=== PATIENT | male | born 1965 | race Caucasian/White ===

== ENCOUNTER 2018-04-04 13:30 | Observation (INO) | payer MEDICARE ==
[2018-04-04 14:11] LABS: BASO % 0.3 % (0.0-1.0); EOS # 0.1 10^3/uL (0.0-0.50); EOS % 0.5 % (0.0-3.0); HEMATOCRIT 42.3 % (42.0-52.0); HEMOGLOBIN 14.1 g/dl (13.5-17.5); IMMATURE GRANULOCYTE % 1.2 % (0-3.0); LYMPH # 1.5 10^3/uL (1.5-4.5); LYMPH % 13.8 % (24.0-44.0); MEAN CORPUSCULAR HEMOGLOBIN 29.8 pg (27.0-33.0); MEAN CORPUSCULAR HGB CONC 33.3 g/dl (32.0-36.5); MEAN CORPUSCULAR VOLUME 89.4 fl (80.0-96.0); MONO # 0.7 10^3/uL (0.0-0.8); MONO % 6.1 % (0.0-5.0); NEUTROPHILS # 8.4 10^3/uL (1.8-7.7); NEUTROPHILS % 78.1 % (36.0-66.0); PLATELET COUNT, AUTOMATED 353 10^3/uL (150-450); RED BLOOD COUNT 4.73 10^6/uL (4.30-6.10); RED CELL DISTRIBUTION WIDTH 14.6 % (11.5-14.5); WHITE BLOOD COUNT 10.7 10^3/uL (4.0-10.0)
[2018-04-04] MEDS: NS 1,000 ML IV ×2 (14:19→19:19)
[2018-04-04] MEDS: MORPHINE 4 MG/ML 1ML VIAL/SYRINGE (J2270) IV ×3 (14:19→20:14)
[2018-04-04] MEDS: ONDANSETRON 4MG/2ML VIAL (J2405) IV ×3 (14:19→22:30)
[2018-04-04 14:44] LABS: LACTIC ACID SEPSIS PROTOCOL 1.8 MMOL/L (0.4-2.0)
[2018-04-04 14:49] LABS: ALBUMIN 3.6 GM/DL (3.2-5.2); ALKALINE PHOSPHATASE 87 U/L (45-117); ALT/SGPT 32 U/L (12-78); ANION GAP 10 MEQ/L (8-16); AST/SGOT 25 U/L (7-37); BILIRUBIN,DIRECT < 0.1 MG/DL (0.0-0.2); BILIRUBIN,TOTAL 0.4 MG/DL (0.2-1.0); BLOOD UREA NITROGEN 18 MG/DL (7-18); CARBON DIOXIDE LEVEL 24 MEQ/L (21-32); CHLORIDE LEVEL 105 MEQ/L (98-107); CREATININE FOR GFR 0.88 MG/DL (0.70-1.30); GLOMERULAR FILTRATION RATE > 60.0 (>56); GLUCOSE, FASTING 146 MG/DL (70-100); LIPASE 56 U/L (73-393); SODIUM LEVEL 139 MEQ/L (136-145); TOTAL PROTEIN 8.1 GM/DL (6.4-8.2)
[2018-04-04] MEDS: METOCLOPRAMIDE INJ 10MG/2ML VIAL (J2765) IV ×2 (15:01→20:14)
[2018-04-04] MEDS: TRIMETHOBENZAMIDE HCL INJ 200 MG/2 ML VIAL (J3250) IM (16:23)
[2018-04-04] MEDS: KETOROLAC 30 MG/ML VIAL (J1885) IV (16:30)
[2018-04-04] MEDS ORDERED: NS 1,000 ML IV (18:02)
[2018-04-04] MEDS ORDERED: ACETAMINOPHEN TAB 650MG DOSE (2X325MG) PO (18:15)
[2018-04-04] MEDS ORDERED: LACTULOSE 20 GM/30 ML SYRUP UD PO (18:15)
[2018-04-04] MEDS ORDERED: ONDANSETRON 4 MG TAB (S0181) PO (18:15)
[2018-04-04 19:11] LABS: ALBUMIN 3.5 GM/DL (3.2-5.2); ALBUMIN/GLOBULIN RATIO 0.81 (1.00-1.93); ALKALINE PHOSPHATASE 86 U/L (45-117); ALT/SGPT 34 U/L (12-78); AST/SGOT 29 U/L (7-37); BILIRUBIN,DIRECT < 0.1 MG/DL (0.0-0.2); BILIRUBIN,TOTAL 0.3 MG/DL (0.2-1.0); TOTAL PROTEIN 7.8 GM/DL (6.4-8.2)
[2018-04-05] MEDS: ONDANSETRON 4MG/2ML VIAL (J2405) IV (04:03)
[2018-04-05] MEDS: MORPHINE 4 MG/ML 1ML VIAL/SYRINGE (J2270) IV ×4 (04:04→23:22)
[2018-04-05] MEDS: LEVOTHYROXINE 150MCG TABLET (0.15MG) PO (06:05)
[2018-04-05] MEDS: LEVOTHYROXINE 25MCG TABLET (0.025MG) PO (06:05)
[2018-04-05 06:18] LABS: HEMATOCRIT 38.2 % (42.0-52.0); HEMOGLOBIN 12.8 g/dl (13.5-17.5); MEAN CORPUSCULAR HEMOGLOBIN 29.8 pg (27.0-33.0); MEAN CORPUSCULAR HGB CONC 33.5 g/dl (32.0-36.5); MEAN CORPUSCULAR VOLUME 88.8 fl (80.0-96.0); PLATELET COUNT, AUTOMATED 332 10^3/uL (150-450); RED CELL DISTRIBUTION WIDTH 14.6 % (11.5-14.5); WHITE BLOOD COUNT 13.4 10^3/uL (4.0-10.0)
[2018-04-05] MEDS: NS 1,000 ML IV ×2 (06:35→10:02)
[2018-04-05 06:39] LABS: BLOOD UREA NITROGEN 17 MG/DL (7-18); CREATININE FOR GFR 0.82 MG/DL (0.70-1.30); GLUCOSE, FASTING 97 MG/DL (70-100)
[2018-04-05 06:40] LABS: ANION GAP 8 MEQ/L (8-16); CALCIUM LEVEL 8.3 MG/DL (8.5-10.1); CARBON DIOXIDE LEVEL 26 MEQ/L (21-32); CHLORIDE LEVEL 106 MEQ/L (98-107); CHOLESTEROL LEVEL 162 MG/DL (<200); CHOLESTEROL RISK RATIO 4.764 (<5); GLOMERULAR FILTRATION RATE > 60.0 (>56); HDL CHOLESTEROL 34 MG/DL (>40); LDL CHOLESTEROL 105 MG/DL (<100); NON-HDL-C 128 MG/DL; POTASSIUM SERUM 3.5 MEQ/L (3.5-5.1); SODIUM LEVEL 140 MEQ/L (136-145); TRIGLYCERIDES LEVEL 117 MG/DL (<150)
[2018-04-05] MEDS ORDERED: ENOXAPARIN 30 MG/0.3 ML SYR (J1650) SC (09:00)
[2018-04-05] MEDS ORDERED: PANTOPRAZOLE 40MG INJ (PROTONIX) (C9113) IV (09:00)
[2018-04-05] MEDS: SUCRALFATE SUSP 1GM/10ML UD PO ×4 (09:19→23:21)
[2018-04-05] MEDS: PANTOPRAZOLE 40MG INJ (PROTONIX) (C9113) IV ×2 (09:20→21:45)
[2018-04-05] MEDS: METOCLOPRAMIDE INJ 10MG/2ML VIAL (J2765) IV ×2 (10:27→17:03)
[2018-04-06] MEDS: IBUPROFEN 800 MG TAB PO (01:01)
[2018-04-06 06:15] LABS: ANION GAP 7 MEQ/L (8-16); BLOOD UREA NITROGEN 17 MG/DL (7-18); CALCIUM LEVEL 8.5 MG/DL (8.5-10.1); CARBON DIOXIDE LEVEL 27 MEQ/L (21-32); CHLORIDE LEVEL 104 MEQ/L (98-107); CREATININE FOR GFR 0.92 MG/DL (0.70-1.30); GLOMERULAR FILTRATION RATE > 60.0 (>56); GLUCOSE, FASTING 105 MG/DL (70-100); POTASSIUM SERUM 3.8 MEQ/L (3.5-5.1); SODIUM LEVEL 138 MEQ/L (136-145)
[2018-04-06] MEDS: LEVOTHYROXINE 150MCG TABLET (0.15MG) PO (06:16)
[2018-04-06] MEDS: LEVOTHYROXINE 25MCG TABLET (0.025MG) PO (06:16)
[2018-04-06] MEDS: SUCRALFATE SUSP 1GM/10ML UD PO (06:16)
[2018-04-06] MEDS: MORPHINE 4 MG/ML 1ML VIAL/SYRINGE (J2270) IV (06:17)
[2018-04-06 06:24] LABS: MEAN CORPUSCULAR HGB CONC 33.3 g/dl (32.0-36.5); MEAN CORPUSCULAR VOLUME 89.9 fl (80.0-96.0); PLATELET COUNT, AUTOMATED 302 10^3/uL (150-450); RED BLOOD COUNT 4.34 10^6/uL (4.30-6.10); RED CELL DISTRIBUTION WIDTH 14.4 % (11.5-14.5); WHITE BLOOD COUNT 8.5 10^3/uL (4.0-10.0)
[2018-04-06] MEDS: PANTOPRAZOLE 40MG INJ (PROTONIX) (C9113) IV (08:48)
== END 2018-04-06 10:02 | disposition home or self-care (01) ==
LOC: M ED 13:30 → M ED INP 17:24 → M MSPAV 20:28
DX: K29.00 Acute gastritis without bleeding (principal); K21.9 Gastro-esophageal reflux disease without esophagitis; E03.9 Hypothyroidism, unspecified; E66.9 Obesity, unspecified; R73.03 Prediabetes; Z79.899 Other long term (current) drug therapy
CPT/HCPCS: C9113

== ENCOUNTER 2021-08-07 14:40 | Emergency (ER) | payer MEDICARE ==
[~2021-08-07] VITALS: Ht 203.2 cm; Wt 136.4 kg
[~2021-08-07 14:40] MED LIST: IBUP80TA PO; LACT20EL PO; LEVO175T2 PO; PANT40TA29 PO; SUCR1TA PO
[2021-08-07] MEDS ORDERED: ONDANSETRON 4MG/2ML VIAL IV ONE (19:15)
[2021-08-07 19:27] LABS: BASO % 0.2 % (0.0-1.0); HEMATOCRIT 46.3 % (42.0-52.0); HEMOGLOBIN 15.4 g/dl (13.5-17.5); LYMPH # 0.8 10^3/uL (1.5-5.0); MEAN CORPUSCULAR HEMOGLOBIN 28.9 pg (27.0-33.0); MEAN CORPUSCULAR HGB CONC 33.3 g/dl (32.0-36.5); MEAN CORPUSCULAR VOLUME 86.9 fl (80.0-96.0); MONO # 0.3 10^3/uL (0.0-0.8); NEUTROPHILS # 11.6 10^3/uL (1.5-8.5); PLATELET COUNT, AUTOMATED 372 10^3/uL (150-450); RED BLOOD COUNT 5.33 10^6/uL (4.30-6.10); WHITE BLOOD COUNT 12.7 10^3/uL (4.0-10.0)
[2021-08-07 19:57] LABS: ALBUMIN 4.1 GM/DL (3.2-5.2); ALT/SGPT 25 U/L (12-78); BILIRUBIN,DIRECT < 0.1 MG/DL (0.0-0.2); BILIRUBIN,TOTAL 0.4 MG/DL (0.2-1.0); BLOOD UREA NITROGEN 26 MG/DL (7-18); CALCIUM LEVEL 10.6 MG/DL (8.5-10.1); CARBON DIOXIDE LEVEL 24 MEQ/L (21-32); CHLORIDE LEVEL 106 MEQ/L (98-107); CREATININE FOR GFR 0.86 MG/DL (0.70-1.30); GLOMERULAR FILTRATION RATE > 60.0 (>56); GLUCOSE, FASTING 143 MG/DL (70-100); LIPASE 45 U/L (73-393); POTASSIUM SERUM 4.6 MEQ/L (3.5-5.1); SODIUM LEVEL 138 MEQ/L (136-145); TOTAL PROTEIN 8.3 GM/DL (6.4-8.2)
[2021-08-07] MEDS ORDERED: NS 1,000 ML IV ONE (20:15)
[2021-08-07] MEDS ORDERED: MORPHINE 4 MG/ML 1ML VIAL/SYRINGE IV ONE ×2 (20:15→22:10)
[2021-08-07] MEDS ORDERED: PROMETHAZINE 25MG/ML 1ML VIAL IV ONE (20:15)
[2021-08-07] MEDS ORDERED: ISOVUE-370 76% 100ML VIAL As Ordered ONE (20:19)
[2021-08-07] MEDS ORDERED: PROM50TA4 PO (23:04)
[2021-08-07] MEDS ORDERED: PROMETHAZINE 25 MG TAB PO ONE (23:05)
[2021-08-07 23:16] VITALS: BP 125/79
== END 2021-08-07 23:29 | disposition home or self-care (01) ==
LOC: M ED 14:40
DX: R10.84 Generalized abdominal pain (principal); R11.2 Nausea with vomiting, unspecified; R19.7 Diarrhea, unspecified; E03.9 Hypothyroidism, unspecified; R93.421 Abnormal radiologic findings on diagnostic imaging of right kidney; K21.9 Gastro-esophageal reflux disease without esophagitis; K57.32 Diverticulitis of large intestine without perforation or abscess without bleeding; G47.33 Obstructive sleep apnea (adult) (pediatric); Z86.711 Personal history of pulmonary embolism; Z79.899 Other long term (current) drug therapy; Z88.5 Allergy status to narcotic agent; Z88.8 Allergy status to other drugs, medicaments and biological substances
CPT/HCPCS: 74177; 80048; 80076; 83690; 85025; 96361; 96374; 96375; 96376; 99284; J2270; J2405; J2550; Q9967

== ENCOUNTER 2021-08-10 14:58 | Emergency (ER) | payer MEDICARE ==
[~2021-08-10] VITALS: Ht 203.2 cm; Wt 136.4 kg
[~2021-08-10 14:58] MED LIST changes: +PROM50TA4 PO
[2021-08-10 15:58] LABS: BASO % 0.3 % (0.0-1.0); HEMATOCRIT 47.4 % (42.0-52.0); HEMOGLOBIN 16.2 g/dl (13.5-17.5); LYMPH # 1.5 10^3/uL (1.5-5.0); LYMPH % 14.5 % (24.0-44.0); MEAN CORPUSCULAR HEMOGLOBIN 29.7 pg (27.0-33.0); MEAN CORPUSCULAR HGB CONC 34.2 g/dl (32.0-36.5); MONO # 0.7 10^3/uL (0.0-0.8); MONO % 7.1 % (2.0-8.0); NEUTROPHILS # 7.8 10^3/uL (1.5-8.5); NEUTROPHILS % 77.4 % (36.0-66.0); PLATELET COUNT, AUTOMATED 360 10^3/uL (150-450); RED BLOOD COUNT 5.45 10^6/uL (4.30-6.10); WHITE BLOOD COUNT 10.1 10^3/uL (4.0-10.0)
[2021-08-10 16:34] LABS: ALBUMIN 4.2 GM/DL (3.2-5.2); BILIRUBIN,DIRECT 0.2 MG/DL (0.0-0.2); BILIRUBIN,TOTAL 0.6 MG/DL (0.2-1.0); TOTAL PROTEIN 7.9 GM/DL (6.4-8.2)
[2021-08-10] MEDS ORDERED: METOCLOPRAMIDE INJ 10MG/2ML VIAL (J2765 PER 1) IV ONE (16:50)
[2021-08-10] MEDS ORDERED: NS 1,000 ML IV ONE (16:50)
[2021-08-10] MEDS ORDERED: DICYCLOMINE INJ 20MG/2ML (J0500) IM ONE (16:55)
[2021-08-10 17:59] LABS: AMPHETAMINES LEVEL URINE NEGATIVE (NEGATIVE); BARBITURATES URINE NEGATIVE (NEGATIVE); BENZODIAZEPINES URINE POSITIVE (NEGATIVE); CANNABINOIDS URINE POSITIVE (NEGATIVE); COCAINE METABOLITE URINE NEGATIVE (NEGATIVE); METHADONE URINE NEGATIVE (NEGATIVE); OPIATES URINE POSITIVE (NEGATIVE); PHENCYCLIDINE URINE NEGATIVE (NEGATIVE)
[2021-08-10] MEDS ORDERED: HALOPERIDOL 5MG/ML VIAL (J1630 PER 1) IV ONE (19:15)
[2021-08-10 19:20] VITALS: BP 119/71
[2021-08-10] MEDS ORDERED: ONDA4TAB6 PO (20:03)
== END 2021-08-10 20:47 | disposition home or self-care (01) ==
LOC: M ED 14:58 → EDBD 14:58 → EDSEX 14:58 → M ED 20:47
DX: R11.2 Nausea with vomiting, unspecified (principal); R19.7 Diarrhea, unspecified; K21.9 Gastro-esophageal reflux disease without esophagitis; Z87.19 Personal history of other diseases of the digestive system; Z79.899 Other long term (current) drug therapy; Z88.8 Allergy status to other drugs, medicaments and biological substances; Z88.5 Allergy status to narcotic agent
CPT/HCPCS: 80047; 80076; 80307; 83690; 85025; 96361; 96372; 96374; 96375; 99284; J0500; J1630; J2765

== ENCOUNTER 2022-11-12 13:47 | Inpatient (IN) | payer MEDICARE ==
[~2022-11-12] VITALS: Ht 203.2 cm; Wt 123.0 kg
[~2022-11-12 13:47] MED LIST changes: +ONDA4TAB6 PO
[2022-11-12] MEDS ORDERED: MONT10TA97 PO (14:11)
[2022-11-12] MEDS ORDERED: DIAZ5TAB PO (14:11)
[2022-11-12] MEDS ORDERED: LEVO-96 PO (14:11)
[2022-11-12] MEDS ORDERED: ALLE10TA62 PO (14:12)
[2022-11-12] MEDS ORDERED: PANTOPRAZOLE 40MG VIAL IV ONE (15:00)
[2022-11-12 15:24] LABS: BASO % 0.2 % (0.0-1.0); HEMATOCRIT 46.9 % (42.0-52.0); LYMPH % 6.4 % (24.0-44.0); MEAN CORPUSCULAR HEMOGLOBIN 29.7 pg (27.0-33.0); MEAN CORPUSCULAR HGB CONC 34.1 g/dl (32.0-36.5); MONO # 0.5 10^3/uL (0.0-0.8); MONO % 2.8 % (2.0-8.0); NEUTROPHILS # 14.5 10^3/uL (1.5-8.5); NEUTROPHILS % 89.7 % (36.0-66.0); PLATELET COUNT, AUTOMATED 383 10^3/uL (150-450); RED BLOOD COUNT 5.39 10^6/uL (4.30-6.10); WHITE BLOOD COUNT 16.2 10^3/uL (4.0-10.0)
[2022-11-12 15:35] LABS: INR 0.98; PROTHROMBIN TIME 13.2 SECONDS (12.5-14.5)
[2022-11-12] MEDS ORDERED: HALOPERIDOL 5MG/ML 1ML VIAL IV ONE (15:35)
[2022-11-12] MEDS ORDERED: NS 1,000 ML IV ONE ×2 (16:15→17:15)
[2022-11-12 16:34] LABS: RSV AMPLIFICATION NEGATIVE (NEGATIVE)
[2022-11-12] MEDS: MORPHINE 4 MG/ML 1ML VIAL IV PRN ×2 (17:05→22:35)
[2022-11-12 17:12] LABS: LIPASE 20 U/L (12-53)
[2022-11-12 17:14] LABS: ALBUMIN 4.3 G/DL (3.2-5.2); ALKALINE PHOSPHATASE 100 U/L (46-116); ALT/SGPT 17 U/L (7.0-40); AST/SGOT 16 U/L (<34); BILIRUBIN,DIRECT 0.1 MG/DL (<0.4); BILIRUBIN,TOTAL 0.5 MG/DL (0.3-1.2); BLOOD UREA NITROGEN 26 MG/DL (9-23); CALCIUM LEVEL 10.9 MG/DL (8.5-10.1); CARBON DIOXIDE LEVEL 22 MMOL/L (20-31); CHLORIDE LEVEL 104 MMOL/L (98-107); CREATININE FOR GFR 0.82 MG/DL (0.70-1.30); GLOMERULAR FILTRATION RATE > 60.0 (>56); GLUCOSE, FASTING 164 MG/DL (60-100); POTASSIUM SERUM 4.7 MMOL/L (3.5-5.1); SODIUM LEVEL 140 MMOL/L (136-145); TOTAL PROTEIN 8.3 G/DL (5.7-8.2)
[2022-11-12] MEDS ORDERED: ISOVUE-370 76% 100ML VIAL As Ordered ONE (17:21)
[2022-11-12] MEDS ORDERED: METOCLOPRAMIDE INJ 10MG/2ML VIAL IV PRN (21:20)
[2022-11-12] MEDS ORDERED: HYDROMORPHONE HCL 0.5 MG/ 0.5 ML SYRINGE IV PRN (21:20)
[2022-11-12] MEDS ORDERED: FLON1SPR (22:40)
[2022-11-12] MEDS ORDERED: REPA140I2 SC (22:40)
[2022-11-12] MEDS ORDERED: HOME MED LIST COMPLETE! XX SCH (22:40)
[2022-11-12] MEDS ORDERED: OMEG10002 PO (22:40)
[2022-11-12] MEDS ORDERED: CETI-24 PO (22:40)
[2022-11-12] MEDS ORDERED: SEMA7TAB2 PO (22:40)
[2022-11-12] MEDS ORDERED: ESOM1CAP5 PO (22:40)
[2022-11-12] MEDS ORDERED: ACET300T53 PO (22:40)
[2022-11-12] MEDS ORDERED: GNP1000C11 PO (22:40)
[2022-11-12] MEDS ORDERED: C 50TAB PO (22:40)
[2022-11-12] MEDS ORDERED: CYCL-707 PO (22:40)
[2022-11-12] MEDS ORDERED: VITA100093 PO (22:40)
[2022-11-12] MEDS ORDERED: DULO60CA35 PO (22:40)
[2022-11-12 22:52] VITALS: BP 140/80; TEMP 98.7; O2SAT 97
[2022-11-13] MEDS: LR 1,000 ML IV SCH ×4 (00:08→19:00)
[2022-11-13 00:43] LABS: BASO % 0.1 % (0.0-1.0); HEMATOCRIT 42.3 % (42.0-52.0); HEMOGLOBIN 14.1 g/dl (13.5-17.5); LYMPH # 1.2 10^3/uL (1.5-5.0); LYMPH % 9.1 % (24.0-44.0); MEAN CORPUSCULAR HEMOGLOBIN 29.3 pg (27.0-33.0); MEAN CORPUSCULAR HGB CONC 33.3 g/dl (32.0-36.5); MEAN CORPUSCULAR VOLUME 87.8 fl (80.0-96.0); MONO # 0.6 10^3/uL (0.0-0.8); MONO % 4.6 % (2.0-8.0); NEUTROPHILS # 11.4 10^3/uL (1.5-8.5); NEUTROPHILS % 84.9 % (36.0-66.0); PLATELET COUNT, AUTOMATED 338 10^3/uL (150-450); RED BLOOD COUNT 4.82 10^6/uL (4.30-6.10); WHITE BLOOD COUNT 13.4 10^3/uL (4.0-10.0)
[2022-11-13 03:26] VITALS: BP 130/69; TEMP 98.7; O2SAT 95
[2022-11-13] MEDS: ONDANSETRON 4MG 2ML VIAL IV PRN ×2 (03:54→19:55)
[2022-11-13] MEDS: HYDROMORPHONE HCL 0.5 MG/ 0.5 ML SYRINGE IV PRN ×4 (03:55→21:25)
[2022-11-13 06:06] LABS: HEMATOCRIT 38.9 % (42.0-52.0); HEMOGLOBIN 13.2 g/dl (13.5-17.5)
[2022-11-13 07:37] VITALS: BP 132/68; TEMP 98.1; O2SAT 98
[2022-11-13] MEDS: PANTOPRAZOLE 40MG VIAL IV SCH ×2 (09:13→19:55)
[2022-11-13] MEDS ORDERED: CYCLOBENZAPRINE 10MG TABLET PO PRN (10:10)
[2022-11-13] MEDS ORDERED: FLUTICASONE PROP 0.05% NASAL SPRAY 16 GM (FLONASE) PRN (10:10)
[2022-11-13] MEDS ORDERED: diazePAM 5MG TABLET PO PRN (10:10)
[2022-11-13 11:04] LABS: PTH INTACT 41.4 PG/ML (18.5-88.0)
[2022-11-13 11:06] LABS: TOTAL 25(OH) VITAMIN D 81.7 NG/ML (20.0-100.0)
[2022-11-13] MEDS: DULoxetine 30MG CAPSULE (CYMBALTA) PO SCH (11:25)
[2022-11-13] MEDS: LEVOTHYROXINE 50MCG TABLET (0.05MG) PO SCH (11:25)
[2022-11-13] MEDS: LEVOTHYROXINE 125MCG TABLET (0.125MG) PO SCH (11:25)
[2022-11-13] MEDS: CETIRIZINE (ZyrTEC) 10 MG TAB PO SCH (11:26)
[2022-11-13] MEDS: ASCORBIC ACID 500 MG TAB PO SCH (11:26)
[2022-11-13] MEDS: MONTELUKAST 10 MG TAB PO SCH (11:26)
[2022-11-13 11:33] VITALS: BP 111/71; TEMP 97.9; O2SAT 97
[2022-11-13 12:14] LABS: HEMOGLOBIN 13.5 g/dl (13.5-17.5)
[2022-11-13 14:12] LABS: HEMATOCRIT 40.4 % (42.0-52.0); HEMOGLOBIN 13.5 g/dl (13.5-17.5)
[2022-11-13 15:54] VITALS: BP 126/60; TEMP 98.1; O2SAT 97
[2022-11-13] MEDS ORDERED: POLYETHYLENE GLYCOL (MIRALAX) 238GM BOTTLE PO ONE (17:00)
[2022-11-13] MEDS ORDERED: MOM 30ML SUSPENSION UDC PO ONE (17:00)
[2022-11-13 20:45] VITALS: BP 104/58; TEMP 98.6; O2SAT 94
[2022-11-13 21:45] LABS: HEMATOCRIT 37.1 % (42.0-52.0); HEMOGLOBIN 12.2 g/dl (13.5-17.5)
[2022-11-14] MEDS: HYDROMORPHONE HCL 0.5 MG/ 0.5 ML SYRINGE IV PRN ×5 (01:36→20:50)
[2022-11-14] MEDS: LR 1,000 ML IV SCH ×2 (03:24→11:07)
[2022-11-14 05:18] VITALS: BP 126/86; TEMP 98.4; O2SAT 93
[2022-11-14] MEDS: LEVOTHYROXINE 50MCG TABLET (0.05MG) PO SCH (05:36)
[2022-11-14] MEDS: ONDANSETRON 4MG 2ML VIAL IV PRN (05:36)
[2022-11-14] MEDS: LEVOTHYROXINE 125MCG TABLET (0.125MG) PO SCH (05:36)
[2022-11-14] MEDS ORDERED: POLYETHYLENE GLYCOL (MIRALAX) 238GM BOTTLE PO ONE (06:00)
[2022-11-14] MEDS: PANTOPRAZOLE 40MG VIAL IV SCH ×2 (07:59→20:49)
[2022-11-14] MEDS: MONTELUKAST 10 MG TAB PO SCH (08:00)
[2022-11-14] MEDS: ASCORBIC ACID 500 MG TAB PO SCH (08:00)
[2022-11-14] MEDS: CETIRIZINE (ZyrTEC) 10 MG TAB PO SCH (08:00)
[2022-11-14] MEDS: OMEGA-3 1000MG CAPSULE PO SCH (08:00)
[2022-11-14] MEDS: DULoxetine 30MG CAPSULE (CYMBALTA) PO SCH (08:00)
[2022-11-14 14:00] VITALS: BP 104/66; TEMP 98.1; O2SAT 96
[2022-11-14] MEDS ORDERED: fentaNYL 100 MCG/2 ML INJECTION As Ordered ONE (19:13)
[2022-11-14] MEDS ORDERED: propofoL 200 MG/20 ML VIAL As Ordered ONE ×3 (19:13→19:30)
[2022-11-14] MEDS ORDERED: LIDOCAINE 2% 100MG/5ML SDV (FOR ANES.) As Ordered ONE (19:13)
[2022-11-14] MEDS ORDERED: oxyCODONE 5MG TAB PO PRN (19:45)
[2022-11-14] MEDS ORDERED: fentaNYL 100 MCG/2 ML INJECTION IV PRN (19:45)
[2022-11-14] MEDS ORDERED: ONDANSETRON 4MG 2ML VIAL IV PRN (19:45)
[2022-11-14] MEDS ORDERED: LR 1,000 ML IV SCH (19:45)
[2022-11-14 20:30] VITALS: BP 127/76; TEMP 97.7; O2SAT 95
[2022-11-14 21:00] VITALS: BP 122/73; TEMP 97.9; O2SAT 94
[2022-11-14 22:00] VITALS: BP 138/79; TEMP 97.5; O2SAT 97
[2022-11-14] MEDS ORDERED: oxyCODONE 5MG TAB PO ONE (23:10)
[2022-11-15 02:00] VITALS: BP 124/83; TEMP 97.5; O2SAT 100
[2022-11-15] MEDS: HYDROMORPHONE HCL 0.5 MG/ 0.5 ML SYRINGE IV PRN ×3 (03:27→12:12)
[2022-11-15] MEDS: LEVOTHYROXINE 50MCG TABLET (0.05MG) PO SCH (05:06)
[2022-11-15] MEDS: LEVOTHYROXINE 125MCG TABLET (0.125MG) PO SCH (05:06)
[2022-11-15 06:00] VITALS: BP 122/84; TEMP 97.9; O2SAT 96
[2022-11-15] MEDS: MONTELUKAST 10 MG TAB PO SCH (08:01)
[2022-11-15] MEDS: OMEGA-3 1000MG CAPSULE PO SCH (08:01)
[2022-11-15] MEDS: PANTOPRAZOLE 40MG VIAL IV SCH (08:01)
[2022-11-15] MEDS: ASCORBIC ACID 500 MG TAB PO SCH (08:01)
[2022-11-15] MEDS: CETIRIZINE (ZyrTEC) 10 MG TAB PO SCH (08:01)
[2022-11-15] MEDS: DULoxetine 30MG CAPSULE (CYMBALTA) PO SCH (08:01)
[2022-11-15 14:00] VITALS: BP 121/80; TEMP 97.5; O2SAT 97
[2022-11-19] MEDS ORDERED: REPATHA 140 MG SQ SCH (09:00)
== END 2022-11-15 15:21 | disposition home or self-care (01) | DRG 394 ==
LOC: M ED 13:47 → M ED INP 21:17 → M PCU 22:49 → M MSPAV 11-13 16:03
PROVIDERS: ADMIT Internal Medicine; ATTEND Internal Medicine
PROC: 0DJD8ZZ Inspection of Lower Intestinal Tract, Via Natural or Artificial Opening Endoscopic (ICD-10-PCS; 2022-11-14)
PROC: 0DB58ZX Excision of Esophagus, Via Natural or Artificial Opening Endoscopic, Diagnostic (ICD-10-PCS; principal; 2022-11-14 16:30)
DX: K64.8 Other hemorrhoids (principal); K92.0 Hematemesis; E87.20 Acidosis, unspecified; D62 Acute posthemorrhagic anemia; K92.1 Melena; K21.9 Gastro-esophageal reflux disease without esophagitis; K22.70 Barrett's esophagus without dysplasia; F12.20 Cannabis dependence, uncomplicated; D72.829 Elevated white blood cell count, unspecified; E78.5 Hyperlipidemia, unspecified; D72.810 Lymphocytopenia; Z88.8 Allergy status to other drugs, medicaments and biological substances; Z79.899 Other long term (current) drug therapy; K44.9 Diaphragmatic hernia without obstruction or gangrene; K57.30 Diverticulosis of large intestine without perforation or abscess without bleeding

== ENCOUNTER 2023-01-14 13:09 | Observation (INO) | payer MEDICARE ==
[~2023-01-14] VITALS: Ht 203.2 cm; Wt 125.0 kg
[~2023-01-14 13:09] MED LIST changes: +ACET300T53 PO; +ALLE10TA62 PO; +C 50TAB PO; +CETI-24 PO; +CYCL-707 PO; +DIAZ5TAB PO; +DULO60CA35 PO; +ESOM1CAP5 PO; +FLON1SPR; +GNP1000C11 PO; +LEVO-96 PO; +MONT10TA97 PO; +OMEG10002 PO; +REPA140I2 SC; +SEMA7TAB2 PO; +VITA100093 PO
[2023-01-14 15:07] LABS: RSV AMPLIFICATION NEGATIVE (NEGATIVE)
[2023-01-14] MEDS ORDERED: ONDANSETRON 4MG 2ML VIAL IV ONE (17:55)
[2023-01-14] MEDS ORDERED: MORPHINE 4 MG/ML 1ML VIAL IV ONE (17:55)
[2023-01-14] MEDS ORDERED: NS 1,000 ML IV ONE ×2 (17:55)
[2023-01-14] MEDS ORDERED: PANTOPRAZOLE 40MG VIAL IV ONE (18:45)
[2023-01-14 19:23] LABS: BASO % 0.2 % (0.0-1.0); HEMATOCRIT 42.9 % (42.0-52.0); HEMOGLOBIN 14.7 g/dl (13.5-17.5); LYMPH # 0.8 10^3/uL (1.5-5.0); LYMPH % 7.5 % (24.0-44.0); MEAN CORPUSCULAR HGB CONC 34.3 g/dl (32.0-36.5); MEAN CORPUSCULAR VOLUME 87.6 fl (80.0-96.0); MONO # 0.2 10^3/uL (0.0-0.8); MONO % 1.9 % (2.0-8.0); NEUTROPHILS # 9.4 10^3/uL (1.5-8.5); PLATELET COUNT, AUTOMATED 349 10^3/uL (150-450); WHITE BLOOD COUNT 10.5 10^3/uL (4.0-10.0)
[2023-01-14 19:35] LABS: INR 1.07; PROTHROMBIN TIME 13.6 SECONDS (12.5-14.5)
[2023-01-14 19:36] LABS: PARTIAL THROMBOPLASTIN TIME 29.3 SECONDS (24.8-34.2)
[2023-01-14] MEDS ORDERED: MORPHINE 2 MG/ML 1ML VIAL IV ONE (19:45)
[2023-01-14] MEDS ORDERED: PROMETHAZINE 25MG/ML 1ML VIAL IV ONE (19:50)
[2023-01-14 19:53] LABS: LIPASE 24 U/L (12-53)
[2023-01-14] MEDS ORDERED: ISOVUE-370 76% 100ML VIAL As Ordered ONE (19:54)
[2023-01-14 19:55] LABS: ALBUMIN 4.1 G/DL (3.2-5.2); ALKALINE PHOSPHATASE 99 U/L (46-116); ALT/SGPT 12 U/L (7.0-40); AST/SGOT 20 U/L (<34); BILIRUBIN,DIRECT 0.1 MG/DL (<0.4); BILIRUBIN,TOTAL 0.4 MG/DL (0.3-1.2); BLOOD UREA NITROGEN 21 MG/DL (9-23); CARBON DIOXIDE LEVEL 23 MMOL/L (20-31); CHLORIDE LEVEL 108 MMOL/L (98-107); GLOMERULAR FILTRATION RATE > 60.0 (>56); GLUCOSE, FASTING 148 MG/DL (60-100); POTASSIUM SERUM 4.6 MMOL/L (3.5-5.1); SODIUM LEVEL 140 MMOL/L (136-145); TOTAL PROTEIN 7.7 G/DL (5.7-8.2)
[2023-01-14] MEDS ORDERED: ACETAMINOPHEN TAB 650MG DOSE (2X325MG) PO PRN (23:30)
[2023-01-14] MEDS ORDERED: MOM 30ML SUSPENSION UDC PO PRN (23:30)
[2023-01-14] MEDS ORDERED: PROMETHAZINE 25MG/ML 1ML VIAL IV PRN (23:30)
[2023-01-14] MEDS ORDERED: DICYCLOMINE INJ 20MG/2ML IM PRN (23:30)
[2023-01-15] MEDS: NS 1,000 ML IV SCH ×2 (00:08→08:44)
[2023-01-15 00:40] VITALS: BP 150/90; TEMP 98.5; O2SAT 99
[2023-01-15] MEDS ORDERED: ONDANSETRON 4MG 2ML VIAL IV PRN (03:30)
[2023-01-15] MEDS: ACETAMINOPH W/CODEINE #3 TAB UD PO PRN ×2 (04:07→10:13)
[2023-01-15 05:35] VITALS: BP 134/68; TEMP 99.1; O2SAT 97
[2023-01-15 07:11] LABS: HEMATOCRIT 39.9 % (42.0-52.0); HEMOGLOBIN 13.4 g/dl (13.5-17.5); MEAN CORPUSCULAR HEMOGLOBIN 29.5 pg (27.0-33.0); MEAN CORPUSCULAR HGB CONC 33.6 g/dl (32.0-36.5); MEAN CORPUSCULAR VOLUME 87.9 fl (80.0-96.0); PLATELET COUNT, AUTOMATED 279 10^3/uL (150-450); RED BLOOD COUNT 4.54 10^6/uL (4.30-6.10); WHITE BLOOD COUNT 12.7 10^3/uL (4.0-10.0)
[2023-01-15 07:34] LABS: ALBUMIN 3.7 G/DL (3.2-5.2); ALKALINE PHOSPHATASE 90 U/L (46-116); ALT/SGPT 14 U/L (7.0-40); AST/SGOT 16 U/L (<34); BILIRUBIN,TOTAL 0.5 MG/DL (0.3-1.2); BLOOD UREA NITROGEN 24 MG/DL (9-23); CALCIUM LEVEL 9.4 MG/DL (8.5-10.1); CARBON DIOXIDE LEVEL 27 MMOL/L (20-31); CHLORIDE LEVEL 106 MMOL/L (98-107); CREATININE FOR GFR 0.78 MG/DL (0.70-1.30); GLOMERULAR FILTRATION RATE > 60.0 (>56); GLUCOSE, FASTING 115 MG/DL (60-100); POTASSIUM SERUM 4.1 MMOL/L (3.5-5.1); SODIUM LEVEL 140 MMOL/L (136-145)
[2023-01-15] MEDS ORDERED: VITA500T40 PO (08:34)
[2023-01-15] MEDS ORDERED: HOME MED LIST COMPLETE! XX SCH (08:35)
[2023-01-15] MEDS ORDERED: ONDANSETRON 4MG ORAL DISINTEGRATING TAB SL SCH (09:00)
[2023-01-15] MEDS ORDERED: OMEPRAZOLE 20MG CAP PO SCH ×2 (09:00→09:55)
[2023-01-15] MEDS ORDERED: ENOXAPARIN 40MG/0.4ML SYRINGE (J1650 PER 10MG) SC SCH (09:00)
[2023-01-15] MEDS ORDERED: diazePAM 5MG TABLET PO PRN (09:45)
[2023-01-15] MEDS ORDERED: CYCLOBENZAPRINE 10MG TABLET PO PRN (09:45)
[2023-01-15] MEDS ORDERED: FLUTICASONE PROP 0.05% NASAL SPRAY 16 GM (FLONASE) PRN (09:45)
[2023-01-15] MEDS ORDERED: METOCLOPRAMIDE 5 MG TAB PO PRN (09:50)
[2023-01-15] MEDS ORDERED: CETIRIZINE (ZyrTEC) 10 MG TAB PO SCH (09:54)
[2023-01-15] MEDS ORDERED: ASCORBIC ACID 500 MG TAB PO SCH (09:54)
[2023-01-15] MEDS ORDERED: VITAMIN D 1,000 INTERNATIONAL UNITS TABLET PO SCH (09:54)
[2023-01-15] MEDS ORDERED: MONTELUKAST 10 MG TAB PO SCH (09:55)
[2023-01-15] MEDS ORDERED: CYANOCOBALAMIN 500 MCG TAB PO SCH (09:55)
[2023-01-15] MEDS ORDERED: LEVOTHYROXINE 150MCG TABLET (0.15MG) PO SCH (09:58)
[2023-01-15] MEDS ORDERED: LEVOTHYROXINE 25MCG TABLET (0.025MG) PO SCH (09:59)
[2023-01-15] MEDS ORDERED: ONDANSETRON 4MG 2ML VIAL IV SCH (10:00)
[2023-01-15 11:49] LABS: HEMOGLOBIN A1c 5.7 % (4.0-6.0)
[2023-01-15] MEDS ORDERED: OMEP40CA5 PO (12:47)
[2023-01-15] MEDS ORDERED: ONDA4TAB6 SL (12:47)
[2023-01-15] MEDS ORDERED: OMEGA-3 1000MG CAPSULE PO SCH (21:00)
[2023-01-15] MEDS ORDERED: DULoxetine 30MG CAPSULE (CYMBALTA) PO SCH (21:00)
== END 2023-01-15 13:20 | disposition home or self-care (01) ==
LOC: M ED 13:09 → INTOOBSV 23:27 → M ED INP 23:27 → M MS5PR 01-15 00:48
PROVIDERS: ADMIT Family Medicine; ATTEND Student in an Organized Health Care Education/Training Program
DX: A08.4 Viral intestinal infection, unspecified (principal); K22.70 Barrett's esophagus without dysplasia; E03.9 Hypothyroidism, unspecified; R73.03 Prediabetes; K64.9 Unspecified hemorrhoids; K57.92 Diverticulitis of intestine, part unspecified, without perforation or abscess without bleeding; Z86.711 Personal history of pulmonary embolism; F12.10 Cannabis abuse, uncomplicated; E66.9 Obesity, unspecified; Z79.899 Other long term (current) drug therapy; Z88.8 Allergy status to other drugs, medicaments and biological substances

== ENCOUNTER 2023-01-17 19:08 | Inpatient (IN) | payer MEDICARE ==
[~2023-01-17] VITALS: Ht 205.7 cm; Wt 120.2 kg
[~2023-01-17 19:08] MED LIST changes: +OMEP40CA5 PO; +ONDA4TAB6 SL; +VITA500T40 PO
[2023-01-17 22:41] LABS: BASO % 0.3 % (0.0-1.0); EOS % 0.1 % (0.0-3.0); HEMATOCRIT 43.5 % (42.0-52.0); HEMOGLOBIN 14.8 g/dl (13.5-17.5); LYMPH # 3.4 10^3/uL (1.5-5.0); LYMPH % 30.6 % (24.0-44.0); MEAN CORPUSCULAR HEMOGLOBIN 29.3 pg (27.0-33.0); MEAN CORPUSCULAR VOLUME 86.1 fl (80.0-96.0); MONO # 0.9 10^3/uL (0.0-0.8); MONO % 7.8 % (2.0-8.0); NEUTROPHILS # 6.7 10^3/uL (1.5-8.5); NEUTROPHILS % 60.9 % (36.0-66.0); PLATELET COUNT, AUTOMATED 298 10^3/uL (150-450); RED BLOOD COUNT 5.05 10^6/uL (4.30-6.10)
[2023-01-17 23:17] LABS: LIPASE 25 U/L (12-53)
[2023-01-17 23:21] LABS: ALBUMIN 4.4 G/DL (3.2-5.2); ALKALINE PHOSPHATASE 105 U/L (46-116); ALT/SGPT 24 U/L (7.0-40); AST/SGOT 25 U/L (<34); BILIRUBIN,DIRECT 0.4 MG/DL (<0.4); BILIRUBIN,TOTAL 0.9 MG/DL (0.3-1.2); BLOOD UREA NITROGEN 31 MG/DL (9-23); CALCIUM LEVEL 10.2 MG/DL (8.5-10.1); CARBON DIOXIDE LEVEL 24 MMOL/L (20-31); CHLORIDE LEVEL 103 MMOL/L (98-107); CREATININE FOR GFR 0.94 MG/DL (0.70-1.30); GLOMERULAR FILTRATION RATE > 60.0 (>56); GLUCOSE, FASTING 94 MG/DL (60-100); POTASSIUM SERUM 4.1 MMOL/L (3.5-5.1); SODIUM LEVEL 136 MMOL/L (136-145); TOTAL PROTEIN 8.1 G/DL (5.7-8.2)
[2023-01-17] MEDS ORDERED: ONDANSETRON 4MG 2ML VIAL IV ONE (23:50)
[2023-01-18] MEDS: MORPHINE 4 MG/ML 1ML VIAL IV PRN ×4 (00:20→08:22)
[2023-01-18] MEDS ORDERED: ISOVUE-370 76% 100ML VIAL As Ordered ONE (00:26)
[2023-01-18 01:12] LABS: CK-MB VALUE MASS < 1.0 NG/ML (<3.6)
[2023-01-18 01:15] LABS: CPK CREATINE PHOSPHOKINASE 88 U/L (46-171); MB/CK RELATIVE INDEX 1.13 (< OR =4)
[2023-01-18] MEDS ORDERED: PROMETHAZINE 25MG/ML 1ML VIAL IV ONE ×2 (01:20→03:35)
[2023-01-18] MEDS: LR 1,000 ML IV SCH ×3 (04:50→17:11)
[2023-01-18 05:36] LABS: RSV AMPLIFICATION NEGATIVE (NEGATIVE)
[2023-01-18] MEDS ORDERED: MED REC IN PROGRESS XX SCH (07:55)
[2023-01-18] MEDS: PROMETHAZINE 25MG/ML 1ML VIAL IV PRN ×3 (08:22→22:51)
[2023-01-18] MEDS: ENOXAPARIN 40MG/0.4ML SYRINGE (J1650 PER 10MG) SC SCH (08:22)
[2023-01-18] MEDS ORDERED: HOME MED LIST COMPLETE! XX SCH (08:40)
[2023-01-18] MEDS ORDERED: MORPHINE 2 MG/ML 1ML VIAL IV ONE (10:10)
[2023-01-18 15:15] VITALS: BP 122/77; TEMP 97.3; O2SAT 95
[2023-01-18] MEDS: MORPHINE 2 MG/ML 1ML VIAL IV PRN ×2 (15:30→20:43)
[2023-01-18 20:35] VITALS: BP 122/77; TEMP 97.9; O2SAT 95
[2023-01-19] MEDS: NS 1,000 ML IV SCH ×4 (00:14→22:43)
[2023-01-19] MEDS: MORPHINE 2 MG/ML 1ML VIAL IV PRN ×6 (00:15→22:44)
[2023-01-19] MEDS: ONDANSETRON 4MG 2ML VIAL IV PRN ×2 (03:53→08:56)
[2023-01-19] MEDS: PANTOPRAZOLE 40MG VIAL IV SCH ×3 (03:53→22:44)
[2023-01-19 05:26] VITALS: BP 150/95; TEMP 97.7; O2SAT 97
[2023-01-19 06:25] LABS: HEMATOCRIT 42.3 % (42.0-52.0); HEMOGLOBIN 14.2 g/dl (13.5-17.5); MEAN CORPUSCULAR HEMOGLOBIN 29.2 pg (27.0-33.0); MEAN CORPUSCULAR HGB CONC 33.6 g/dl (32.0-36.5); PLATELET COUNT, AUTOMATED 275 10^3/uL (150-450); RED BLOOD COUNT 4.86 10^6/uL (4.30-6.10); WHITE BLOOD COUNT 12.8 10^3/uL (4.0-10.0)
[2023-01-19 06:57] LABS: BLOOD UREA NITROGEN 29 MG/DL (9-23); CARBON DIOXIDE LEVEL 25 MMOL/L (20-31); CHLORIDE LEVEL 102 MMOL/L (98-107); CREATININE FOR GFR 0.86 MG/DL (0.70-1.30); GLOMERULAR FILTRATION RATE > 60.0 (>56); GLUCOSE, FASTING 88 MG/DL (60-100); POTASSIUM SERUM 3.7 MMOL/L (3.5-5.1); SODIUM LEVEL 138 MMOL/L (136-145)
[2023-01-19] MEDS: MIRALAX *UNIT DOSE* 17GM PACKET NG SCH ×3 (09:00→20:22)
[2023-01-19] MEDS: LEVOTHYROXINE 100MCG (0.1MG) 5ML SDV PF (SOLUTION FORM) IV SCH (09:03)
[2023-01-19] MEDS: PIPERACILLIN/TAZOBACTAM SOD 3.375 GM in D5W MINI-BAG PLUS 50 ML IV SCH ×4 (09:03→22:43)
[2023-01-19] MEDS: ENOXAPARIN 40MG/0.4ML SYRINGE (J1650 PER 10MG) SC SCH (09:04)
[2023-01-19 14:00] VITALS: BP 146/84; TEMP 97.7; O2SAT 96
[2023-01-19 17:21] LABS: HEMATOCRIT 43.1 % (42.0-52.0); HEMOGLOBIN 14.7 g/dl (13.5-17.5); MEAN CORPUSCULAR HEMOGLOBIN 29.7 pg (27.0-33.0); MEAN CORPUSCULAR HGB CONC 34.1 g/dl (32.0-36.5); MEAN CORPUSCULAR VOLUME 87.1 fl (80.0-96.0); PLATELET COUNT, AUTOMATED 254 10^3/uL (150-450); RED BLOOD COUNT 4.95 10^6/uL (4.30-6.10); WHITE BLOOD COUNT 10.3 10^3/uL (4.0-10.0)
[2023-01-19 19:46] VITALS: BP 121/78; TEMP 97.9; O2SAT 95
[2023-01-19 20:00] VITALS: TEMP 98
[2023-01-20] MEDS: PIPERACILLIN/TAZOBACTAM SOD 3.375 GM in D5W MINI-BAG PLUS 50 ML IV SCH ×4 (03:07→20:16)
[2023-01-20 05:31] VITALS: BP 102/57; TEMP 97.4; O2SAT 96
[2023-01-20] MEDS: NS 1,000 ML IV SCH ×3 (05:59→18:09)
[2023-01-20] MEDS: MORPHINE 2 MG/ML 1ML VIAL IV PRN ×4 (06:00→22:20)
[2023-01-20 06:06] LABS: BASO % 0.3 % (0.0-1.0); EOS # 0.1 10^3/uL (0.0-0.5); EOS % 0.8 % (0.0-3.0); HEMATOCRIT 39.9 % (42.0-52.0); HEMOGLOBIN 13.5 g/dl (13.5-17.5); LYMPH # 0.7 10^3/uL (1.5-5.0); LYMPH % 11.6 % (24.0-44.0); MEAN CORPUSCULAR HEMOGLOBIN 29.6 pg (27.0-33.0); MEAN CORPUSCULAR HGB CONC 33.8 g/dl (32.0-36.5); MEAN CORPUSCULAR VOLUME 87.5 fl (80.0-96.0); MONO # 0.5 10^3/uL (0.0-0.8); MONO % 8.1 % (2.0-8.0); NEUTROPHILS # 4.8 10^3/uL (1.5-8.5); NEUTROPHILS % 78.9 % (36.0-66.0); RED BLOOD COUNT 4.56 10^6/uL (4.30-6.10); WHITE BLOOD COUNT 6.1 10^3/uL (4.0-10.0)
[2023-01-20 06:26] LABS: BLOOD UREA NITROGEN 22 MG/DL (9-23); CALCIUM LEVEL 8.7 MG/DL (8.5-10.1); CARBON DIOXIDE LEVEL 22 MMOL/L (20-31); CHLORIDE LEVEL 104 MMOL/L (98-107); CREATININE FOR GFR 0.81 MG/DL (0.70-1.30); GLOMERULAR FILTRATION RATE > 60.0 (>56); GLUCOSE, FASTING 89 MG/DL (60-100); POTASSIUM SERUM 3.8 MMOL/L (3.5-5.1); SODIUM LEVEL 139 MMOL/L (136-145)
[2023-01-20] MEDS: MIRALAX *UNIT DOSE* 17GM PACKET NG SCH ×3 (08:28→20:19)
[2023-01-20] MEDS: LEVOTHYROXINE 100MCG (0.1MG) 5ML SDV PF (SOLUTION FORM) IV SCH (08:29)
[2023-01-20] MEDS: ENOXAPARIN 40MG/0.4ML SYRINGE (J1650 PER 10MG) SC SCH (08:29)
[2023-01-20] MEDS: PANTOPRAZOLE 40MG VIAL IV SCH ×2 (08:29→20:17)
[2023-01-20] MEDS ORDERED: FLUTICASONE PROP 0.05% NASAL SPRAY 16 GM (FLONASE) PRN (12:05)
[2023-01-20] MEDS ORDERED: diazePAM 5MG TABLET PO PRN (12:05)
[2023-01-20] MEDS ORDERED: CYCLOBENZAPRINE 10MG TABLET PO PRN (12:05)
[2023-01-20 14:00] VITALS: BP 117/75; TEMP 97.5; O2SAT 98
[2023-01-20] MEDS: VITAMIN D 1,000 INTERNATIONAL UNITS TABLET PO SCH (14:12)
[2023-01-20] MEDS: SUCRALFATE 1 GM TAB PO SCH ×3 (14:12→20:16)
[2023-01-20] MEDS: ASCORBIC ACID 500 MG TAB PO SCH (14:12)
[2023-01-20] MEDS: CYANOCOBALAMIN 500 MCG TAB PO SCH (14:12)
[2023-01-20] MEDS: CETIRIZINE (ZyrTEC) 10 MG TAB PO SCH (14:12)
[2023-01-20] MEDS: MONTELUKAST 10 MG TAB PO SCH (14:12)
[2023-01-20 20:49] VITALS: BP 122/72; TEMP 97.3; O2SAT 98
[2023-01-20] MEDS ORDERED: OMEGA-3 1000MG CAPSULE PO SCH (21:00)
[2023-01-21] MEDS: NS 1,000 ML IV SCH ×2 (00:28→08:22)
[2023-01-21] MEDS: MORPHINE 2 MG/ML 1ML VIAL IV PRN ×2 (01:58→04:58)
[2023-01-21] MEDS: PIPERACILLIN/TAZOBACTAM SOD 3.375 GM in D5W MINI-BAG PLUS 50 ML IV SCH ×2 (01:58→08:21)
[2023-01-21 05:42] VITALS: BP 116/66; TEMP 97.5; O2SAT 97
[2023-01-21] MEDS ORDERED: LEVOTHYROXINE 25MCG TABLET (0.025MG) PO SCH (06:00)
[2023-01-21] MEDS ORDERED: LEVOTHYROXINE 150MCG TABLET (0.15MG) PO SCH (06:00)
[2023-01-21] MEDS: ASCORBIC ACID 500 MG TAB PO SCH (08:21)
[2023-01-21] MEDS: CYANOCOBALAMIN 500 MCG TAB PO SCH (08:21)
[2023-01-21] MEDS: PANTOPRAZOLE 40MG VIAL IV SCH (08:21)
[2023-01-21] MEDS: CETIRIZINE (ZyrTEC) 10 MG TAB PO SCH (08:21)
[2023-01-21] MEDS: MIRALAX *UNIT DOSE* 17GM PACKET NG SCH (08:21)
[2023-01-21] MEDS: SUCRALFATE 1 GM TAB PO SCH ×2 (08:21→12:12)
[2023-01-21] MEDS: VITAMIN D 1,000 INTERNATIONAL UNITS TABLET PO SCH (08:21)
[2023-01-21] MEDS: MONTELUKAST 10 MG TAB PO SCH (08:21)
[2023-01-21 08:39] LABS: HEMATOCRIT 35.1 % (42.0-52.0); HEMOGLOBIN 11.8 g/dl (13.5-17.5); MEAN CORPUSCULAR HEMOGLOBIN 29.4 pg (27.0-33.0); MEAN CORPUSCULAR HGB CONC 33.6 g/dl (32.0-36.5); MEAN CORPUSCULAR VOLUME 87.5 fl (80.0-96.0); PLATELET COUNT, AUTOMATED 228 10^3/uL (150-450); RED BLOOD COUNT 4.01 10^6/uL (4.30-6.10); WHITE BLOOD COUNT 6.5 10^3/uL (4.0-10.0)
[2023-01-21 09:13] LABS: BLOOD UREA NITROGEN 10 MG/DL (9-23); CALCIUM LEVEL 8.2 MG/DL (8.5-10.1); CARBON DIOXIDE LEVEL 29 MMOL/L (20-31); CHLORIDE LEVEL 104 MMOL/L (98-107); CREATININE FOR GFR 0.84 MG/DL (0.70-1.30); GLOMERULAR FILTRATION RATE > 60.0 (>56); GLUCOSE, FASTING 120 MG/DL (60-100); POTASSIUM SERUM 3.1 MMOL/L (3.5-5.1); SODIUM LEVEL 139 MMOL/L (136-145)
[2023-01-21] MEDS ORDERED: POTASSIUM CHLORIDE 10MEQ SR TABLET PO ONE (09:45)
[2023-01-21] MEDS ORDERED: PROT1TAB2 PO ×2 (10:43→11:06)
[2023-01-21] MEDS ORDERED: CARA1TAB6 PO (10:43)
[2023-01-21] MEDS ORDERED: DULoxetine 30MG CAPSULE (CYMBALTA) PO SCH (21:00)
== END 2023-01-21 12:32 | disposition home or self-care (01) | DRG 388 ==
LOC: M ED 19:08 → M ED INP 01-18 03:52 → ENRESERV 01-18 14:16 → M MSPAV 01-18 15:03
PROVIDERS: ADMIT Family Medicine; ATTEND Student in an Organized Health Care Education/Training Program
DX: K56.600 Partial intestinal obstruction, unspecified as to cause (principal); K22.6 Gastro-esophageal laceration-hemorrhage syndrome; K92.2 Gastrointestinal hemorrhage, unspecified; K22.70 Barrett's esophagus without dysplasia; E03.9 Hypothyroidism, unspecified; Z88.8 Allergy status to other drugs, medicaments and biological substances; Z79.899 Other long term (current) drug therapy; F12.90 Cannabis use, unspecified, uncomplicated; F41.9 Anxiety disorder, unspecified